=== PATIENT | male | born 1960 | race Native Hawaiian/Other Pacific Islander ===

== ENCOUNTER 2018-12-27 08:43 | Outpatient (CLI) | payer OTHER ==
[2018-12-27] MEDS ORDERED: PROVENTIL108 MCG/AC INH (09:18)
[2018-12-27] MEDS ORDERED: FLONASE AL50 MCG/ACT NAS (09:19)
[2018-12-27] MEDS ORDERED: HYDR10TA47 PO (09:19)
[2018-12-27] MEDS ORDERED: LINZESS145 MCG PO (09:20)
[2018-12-27] MEDS ORDERED: IBU600 MG PO (09:21)
[2018-12-27] MEDS ORDERED: COZAAR100 MG PO (09:21)
[2018-12-27] MEDS ORDERED: JARDIANCE10 MG PO (09:22)
[2018-12-27] MEDS ORDERED: GLYBURIDE2.5 MG PO (09:22)
[2018-12-27] MEDS ORDERED: UNITH DIRECT50 MCG PO (09:23)
[2018-12-27] MEDS ORDERED: CELEXA20 MG PO (09:23)
[2018-12-27] MEDS ORDERED: TIZA4TAB5 PO (09:23)
[2018-12-27] MEDS ORDERED: PRAVACHOL20 MG PO (09:24)
[2018-12-27] MEDS ORDERED: CARV25TA PO (09:24)
[2018-12-27] MEDS ORDERED: HYDROCHLOROT12.5 M1 PO (09:25)
[2018-12-27] MEDS ORDERED: GRALISE600 MG PO (09:26)
[2018-12-27] MEDS ORDERED: CLARITIN10 M1 PO (09:26)
[2018-12-27] MEDS ORDERED: METFORMIN HYD1000 M1 PO (09:27)
[2018-12-27] MEDS ORDERED: ALLO100T22 PO (09:27)
[2018-12-27] MEDS ORDERED: VITAMIN D32000 UNIT PO (09:33)
[2018-12-27] MEDS ORDERED: GINKGO BILOB120 MG PO (09:34)
[2018-12-27] MEDS ORDERED: HUMALOG MIX SC (09:37)
[2018-12-27] MEDS ORDERED: LEVEMIR FL100 UNIT/M SC (09:38)
== END 2018-12-27 08:49 | disposition short-term general hospital (02) ==
LOC: AMB 08:43
DX: R06.02 Shortness of breath (principal); R07.89 Other chest pain
CPT/HCPCS: A0425; A0427

== ENCOUNTER 2018-12-27 08:54 | Emergency (ER) | payer OTHER ==
[~2018-12-27] VITALS: Ht 185.4 cm; Wt 165.6 kg
[2018-12-27 09:15] LABS: PLATELET COUNT 151 K/uL (142-355)
[2018-12-27] MEDS ORDERED: PROVENTIL108 MCG/AC INH (09:18)
[2018-12-27] MEDS ORDERED: HYDR10TA47 PO (09:19)
[2018-12-27] MEDS ORDERED: FLONASE AL50 MCG/ACT NAS (09:19)
[2018-12-27] MEDS ORDERED: LINZESS145 MCG PO (09:20)
[2018-12-27] MEDS ORDERED: IBU600 MG PO (09:21)
[2018-12-27] MEDS ORDERED: COZAAR100 MG PO (09:21)
[2018-12-27] MEDS ORDERED: GLYBURIDE2.5 MG PO (09:22)
[2018-12-27] MEDS ORDERED: JARDIANCE10 MG PO (09:22)
[2018-12-27] MEDS ORDERED: UNITH DIRECT50 MCG PO (09:23)
[2018-12-27] MEDS ORDERED: CELEXA20 MG PO (09:23)
[2018-12-27] MEDS ORDERED: TIZA4TAB5 PO (09:23)
[2018-12-27] MEDS ORDERED: PRAVACHOL20 MG PO (09:24)
[2018-12-27] MEDS ORDERED: CARV25TA PO (09:24)
[2018-12-27 09:25] LABS: POTASSIUM 4.3 mmol/L (3.6-5.2); SODIUM 136 mmol/L (136-145)
[2018-12-27] MEDS ORDERED: HYDROCHLOROT12.5 M1 PO (09:25)
[2018-12-27] MEDS ORDERED: GRALISE600 MG PO (09:26)
[2018-12-27] MEDS ORDERED: CLARITIN10 M1 PO (09:26)
[2018-12-27] MEDS ORDERED: METFORMIN HYD1000 M1 PO (09:27)
[2018-12-27] MEDS ORDERED: ALLO100T22 PO (09:27)
[2018-12-27] MEDS ORDERED: VITAMIN D32000 UNIT PO (09:33)
[2018-12-27] MEDS ORDERED: GINKGO BILOB120 MG PO (09:34)
[2018-12-27] MEDS ORDERED: HUMALOG MIX SC (09:37)
[2018-12-27] MEDS ORDERED: LEVEMIR FL100 UNIT/M SC (09:38)
[2018-12-27 10:04] LABS: PARTIAL THROMBOPLASTIN TIME 22.4 SECONDS (24.5-33.6)
[2018-12-27 15:15] VITALS: BP 113/58; TEMP 97.7
== END 2018-12-27 15:15 | disposition short-term general hospital (02) ==
LOC: ED 08:54
PROVIDERS: Family Medicine
DX: R79.89 Other specified abnormal findings of blood chemistry (principal); R06.09 Other forms of dyspnea; R10.84 Generalized abdominal pain; R00.0 Tachycardia, unspecified; I44.5 Left posterior fascicular block
CPT/HCPCS: 36415; 74022; 80053; 82550; 84484; 85027; 85379; 85610; 85730; 93005; 96374; 96375; 99284; J1885; J2405; Q9963

== ENCOUNTER 2019-07-15 21:28 | Outpatient (CLI) | payer OTHER ==
[~2019-07-15 21:28] MED LIST: ALLO100T22 PO; CARV25TA PO; CELEXA20 MG PO; CLARITIN10 M1 PO; COZAAR100 MG PO; FLONASE AL50 MCG/ACT NAS; GINKGO BILOB120 MG PO; GLYBURIDE2.5 MG PO; GRALISE600 MG PO; HUMALOG MIX SC; HYDR10TA47 PO; HYDROCHLOROT12.5 M1 PO; IBU600 MG PO; JARDIANCE10 MG PO; LEVEMIR FL100 UNIT/M SC; LINZESS145 MCG PO; METFORMIN HYD1000 M1 PO; PRAVACHOL20 MG PO; PROVENTIL108 MCG/AC INH; TIZA4TAB5 PO; UNITH DIRECT50 MCG PO; VITAMIN D32000 UNIT PO
[2019-07-16] MEDS ORDERED: CEPH500C20 PO (05:57)
[2019-07-16] MEDS ORDERED: OMEP20CA PO (05:58)
[2019-07-16] MEDS ORDERED: AMOXICILLIN250 M2 PO (05:59)
[2019-07-16] MEDS ORDERED: GLYBURIDE2.5 MG PO (06:00)
[2019-07-16] MEDS ORDERED: CLAR500T PO (06:01)
[2019-07-16] MEDS ORDERED: TRAZ50TA36 PO (06:02)
[2019-07-16] MEDS ORDERED: METF500T PO (06:03)
[2019-07-16] MEDS ORDERED: ASA LOW DOSE81 MG PO (06:04)
== END 2019-07-15 21:33 | disposition short-term general hospital (02) ==
LOC: AMB 21:28
DX: I10 Essential (primary) hypertension (principal); R50.9 Fever, unspecified
CPT/HCPCS: A0425; A0427

== ENCOUNTER 2019-07-15 21:41 | Observation (INO) | payer OTHER ==
[~2019-07-15] VITALS: Ht 185.4 cm; Wt 157.5 kg
[2019-07-15 21:43] VITALS: BP 144/67; TEMP 99.7
[2019-07-15 21:57] LABS: PLATELET COUNT 158 K/uL (142-355)
[2019-07-16 02:21] VITALS: BP 167/80; Ht 185.4 cm; Wt 157.5 kg
[2019-07-16] MEDS ORDERED: CEPH500C20 PO (05:57)
[2019-07-16] MEDS ORDERED: OMEP20CA PO (05:58)
[2019-07-16] MEDS ORDERED: AMOXICILLIN250 M2 PO (05:59)
[2019-07-16] MEDS ORDERED: GLYBURIDE2.5 MG PO (06:00)
[2019-07-16] MEDS ORDERED: CLAR500T PO (06:01)
[2019-07-16] MEDS ORDERED: TRAZ50TA36 PO (06:02)
[2019-07-16] MEDS ORDERED: METF500T PO (06:03)
[2019-07-16] MEDS ORDERED: ASA LOW DOSE81 MG PO (06:04)
[2019-07-16 08:00] VITALS: BP 179/81; TEMP 97.7
[2019-07-16 12:00] VITALS: BP 193/95; TEMP 99
[2019-07-16 16:00] VITALS: BP 167/84; TEMP 99.5
[2019-07-16 19:58] VITALS: BP 176/79; TEMP 99.1
[2019-07-17] VITALS: BP 138/78; TEMP 98.9
[2019-07-17 04:00] VITALS: BP 143/82; TEMP 98.6
[2019-07-17 05:41] LABS: PLATELET COUNT 136 K/uL (142-355)
[2019-07-17 05:52] LABS: POTASSIUM 4.1 mmol/L (3.6-5.2)
[2019-07-17 08:00] VITALS: BP 160/100; BP 184/100; TEMP 98.4
== END 2019-07-17 12:04 | disposition home or self-care (01) ==
LOC: ED 21:41 → MED/SURG 23:45
PROVIDERS: Emergency Medicine; ADMIT Family Medicine
DX: J45.901 Unspecified asthma with (acute) exacerbation (principal); J09.X2 Influenza due to identified novel influenza A virus with other respiratory manifestations; I10 Essential (primary) hypertension; E11.9 Type 2 diabetes mellitus without complications; M15.8 Other polyosteoarthritis; R53.1 Weakness; I50.9 Heart failure, unspecified; M79.18 Myalgia, other site; R05 Cough
CPT/HCPCS: 36600; 80053; 82805; 83880; 85027; 87502; 93005; 94640; 94664; 94760; 96360; 96365; 96366; 96374; 99220; 99284; G0378; J1815; J2930

== ENCOUNTER 2021-08-20 09:15 | Outpatient (CLI) | payer OTHER ==
[~2021-08-20] VITALS: Ht 185.4 cm; Wt 161.0 kg
[~2021-08-20 09:15] MED LIST changes: +AMOXICILLIN250 M2 PO; +ASA LOW DOSE81 MG PO; +CEPH500C20 PO; +CLAR500T PO; +METF500T PO; +OMEP20CA PO; +TRAZ50TA36 PO
== END 2021-08-20 18:55 | disposition home or self-care (01) ==
LOC: INF 09:15
PROVIDERS: ATTEND Nurse Practitioner Family
DX: U07.1 COVID-19 (principal); Z23 Encounter for immunization
CPT/HCPCS: 96365; M0244